=== PATIENT | male | born 1935 | race Caucasian/White ===

== ENCOUNTER → 2017-09-19 | Outpatient (CLI) | payer MEDICARE, BC | END | disposition short-term general hospital (02) | LOC: EMS 09-20 23:55 | PROVIDERS: ATTEND Surgery | DX: M25.552 Pain in left hip (principal); W18.30XA Fall on same level, unspecified, initial encounter; Y92.010 Kitchen of single-family (private) house as the place of occurrence of the external cause | CPT/HCPCS: A0170; A0425; A0427 ==